=== PATIENT | female | born 1990 | race Caucasian/White ===

== ENCOUNTER 2019-06-25 07:22 | Day surgery (SDC) | payer OTHER ==
[2019-06-25] MEDS ORDERED: MORGIDOX100 MG PO (15:37)
[2019-06-25] MEDS ORDERED: Tylenol #3 PO (15:37)
== END 2019-06-25 18:00 | disposition home or self-care (01) ==
LOC: CIR.AMB 07:22
DX: D25.0 Submucous leiomyoma of uterus (principal); N84.0 Polyp of corpus uteri

== ENCOUNTER 2024-06-09 18:54 | Emergency (ER) | payer OTHER ==
[~2024-06-09] VITALS: Ht 165.1 cm; Wt 87.1 kg
[~2024-06-09 18:54] MED LIST: MORGIDOX100 MG PO; Tylenol #3 PO
[2024-06-09] MEDS ORDERED: MAXFE CAPLET1 EAC1 PO (19:12)
[2024-06-09] MEDS ORDERED: 0.9 % SODIUM CHLORIDE 1,000 ML IV STA (19:38)
[2024-06-09 20:05] LABS: HEMATOCRIT 29.1 % (36.0-45.00); HEMOGLOBIN 9.1 g/dL (12.0-15.00); MEAN CELL VOLUME 57.8 fL (80.00-100.00); MEAN CORPUSCULAR HGB CONC 31.3 g/dl (32.0-36.0); PLATELET COUNT 365 K/uL (150-450); RED BLOOD COUNT 5.04 M/uL (4.00-6.00); RED CELL DISTRIBUTION WIDTH 20.1 % (11.5-14.5)
[2024-06-09 20:19] LABS: PH,URINE 5.5 (5.0-8.0); URINE APPEARANCE Clear; URINE BILIRRUBIN Negative (NEGATIVE); URINE BLOOD Negative; URINE COLOR Yellow; URINE GLUCOSE Negative (NEGATIVE); URINE KETONE Negative (NEGATIVE); URINE LEUKOCYTE Trace; URINE NITRATE Negative; URINE PROTEIN Trace (NEGATIVE); URINE UROBILINOGEN 0.2 E.U./dl
[2024-06-09 20:22] LABS: URINE BACTERIA 699.2 uL (0.0-1933); URINE EPITHELIAL CELLS 18.5 uL (0.0-38.8); URINE RBC 2.1 uL (0.0-20.8); URINE WBC 26.7 uL (0.0-23.2)
[2024-06-09 20:35] LABS: CALCIUM 9.8 mg/dL (8.5-10.1); CREATININE SERUM 0.76 mg/dL (0.55-1.02); GFR 87.11; POTASSIUM 3.93 mEq/L (3.5-5.1)
== END 2024-06-09 21:52 | disposition home or self-care (01) ==
LOC: ER 18:56
PROVIDERS: Emergency Medicine
DX: D64.89 Other specified anemias (principal)